=== PATIENT | male | born 1985 | race Caucasian/White ===

== ENCOUNTER 2017-07-25 23:34 | Observation (INO) | payer OTHER, SELFPAY ==
[2017-07-25 23:36] VITALS: BP 122/70; PULSE 83; RESP 20; TEMP 36.7; O2SAT 99; BMI 33.0
--- NOTE | 2017-07-25 23:48 | EKG12_ITS ---
Test Reason : CP Blood Pressure : / mmHG Vent. Rate : 076 BPM Atrial Rate : 076 BPM P-R Int : 174 ms QRS Dur : 080 ms QT Int : 386 ms P-R-T Axes : 035 056 059 degrees QTc Int : 434 ms Normal sinus rhythm Normal ECG Confirmed by DAVE OLVERA ([id number]), associate editor NANCY PLATA ([id number]) on 07/28/2017 1:16:34 PM Referred By: MARII Confirmed By:DAVE OLVERA
--- NOTE | 2017-07-25 23:48 | RAD_ITS ---
STUDY: X-RAY CHEST REASON FOR EXAM: Male, 32 years old. Chest pain and shortness of breath TECHNIQUE: Single frontal view COMPARISON: 12/01/2016 FINDINGS: The lungs are clear and expanded. There is no demonstrated pleural abnormality. Normal size heart. Normal mediastinum and kenan. Normal visualized pulmonary arteries. Normal visualized aortic arch and descending thoracic aorta. Normal visualized thoracic spine. Normal visualized ribs, clavicles, and shoulders. There is no demonstrated abnormality of the visualized soft tissue structures of the upper abdomen. RAD/Chest 1 View (Portable) IMPRESSION: Normal x-ray examination of the chest. Electronically Signed: Randy Hernández MD at 0:51 EDT , Service support ,
[2017-07-25 23:53] VITALS: O2SAT 99
[2017-07-25 23:57] VITALS: BP 123/83; PULSE 82
[2017-07-25] MEDS: Aspirin 81 MG TAB.CHEW 324 MG PO (23:57)
[2017-07-26] VITALS (15 sets, daily range): BP systolic 101–123; BP diastolic 61–74; PULSE 61–92; RESP 12–21; TEMP 36.6–36.8; O2SAT 96–99; BMI 33.0; BMI 34.9
[2017-07-26] MEDS: 0.9% Normal Saline 1,000 ML 150 ML IV ×2 (00:04→06:41)
[2017-07-26 00:07] LABS: Absolute Lymphocyte Count 3.39 X10^3/ul (0.83-4.51); Absolute Neutrophil Count 2.5 X10^3/uL (2.0-7.7); Basophil# 0.04 X10^3/uL; Basophil% 0.6 % (0-1); Eosinophil# 0.18 X10^3/uL; Eosinophils% 2.7 % (0-5); Hematocrit 43.4 % (40-54); Hemoglobin 14.3 g/dl (13.0-16.5); Lymphocyte # 3.39 X10^3/ul (4.0); Lymphocyte % 49.9 % (19-41); Mean Corp Hgb Conc 32.9 g/gl (32-36); Mean Corpuscular Hgb 29.2 pg (27.0-32.0); Mean Corpuscular Volume 88.6 fL (80-94); Mean Platelet Vol. 9.7 fl (6.2-12.0); Monocyte# 0.69 X10^3/uL; Monocyte% 10.2 % (0-10); Neutrophil # 2.48 X10^3/uL (2.7-7.7); Neutrophil % 36.5 % (47-70); POSITIVE COUNT NO; POSITIVE DIFFERENTIAL NO; POSITIVE MORPHOLOGY NO; Platelet Count 244 K/mm3 (150-450); RBC Distribution Width CV 12.8 % (11.6-14.6); RBC Distribution Width SD 40.8 fl (35.1-43.9); White Blood Count 6.8 K/mm3 (4.4-11.0)
[2017-07-26 00:21] LABS: Anion Gap 6 (5-15); BUN 9 mg/dL (7-18); BUN/Creat Ratio 10.1 RATIO (10-20); Calcium,Total 8.3 mg/dL (8.5-10.1); Chloride 109 mmol/L (98-107); Creatinine, Serum 0.89 mg/dL (0.70-1.30); EST Glomerular Filtration Rate 106 mL/min (>60); Est Glom Filt Rate - Afr Amer 128 mL/min (>60); Estimated Creatinine Clearance 112.44 ml/min; Glucose 108 mg/dL (74-106); Potassium 3.7 mmol/L (3.5-5.1); Sodium Level 141 mmol/L (136-145)
[2017-07-26 00:39] LABS: D-Dimer Quantitative (DVT/PE) < 0.27 FEU/ug/m (0.27-0.49)
--- NOTE | 2017-07-26 00:56 | ED.VISSUMM ---
- ER Visit Summary Date of Service: 07/26/17 Chief Complaint: [Pain chest] History of Present Illness: The patient is a 32 M [presents to the emergency department with complaint of chest pain that started about 5 days ago. Patient describes it as pressure and retrosternal. Patient rates his pain as 7 out of 10. No radiation of the pain. Patient does feel short of breath with it. He denies any nausea or vomiting. He denies any diaphoresis. Patient initially thought maybe it was related to anxiety or panic attack but it did not resolve. Patient states that he has a history of high cholesterol and significant family history of heart disease. Patient's father had his first CT at age 37. Patient denies recent travel or surgery. Patient does have a history of PTSD, traumatic brain injury, anxiety.] Physical Examination: [HEENT-PERRLA, EOMI. Cranial nerves II through XII grossly intact. TMs clear. Mucous membranes moist. No adenopathy. Cardiovascular-regular rate and rhythm without murmur or ectopy Lungs-clear to auscultation, chest wall stable without crepitus or subcu emphysema Abdomen-normoactive bowel sounds, soft, nontender, no rebound or rigidity, no peritoneal signs. Extremities-intact ?4, normal range of motion, normal pulses, atraumatic] Test Results: [EKG obtained showed sinus rhythm with a ventricular rate of 76 bpm with no acute ST segment changes. CBC with differential was normal. Chemistries were normal. Troponin is less than 0.02. D-dimer was normal less than 0.27. Chest x-ray was normal.] Emergency Department Course and Treatment: Patient received aspirin in the emergency department. Patient also received 1 sublingual nitroglycerin every 5 minutes ?3 which resolved his pain. Patient had an inch of Nitropaste placed to the anterior chest wall. [] Treatment Plan: [Admit for further workup and evaluation.] Disposition: [Admit] Impression: [Chest pain-rule out acute coronary syndrome] This note was generated with [employer] dictation software. It may contain incorrect words, spelling, and punctuation that were not noted in review of the chart prior to signing ED Disposition - Plan for ED Patient: Chief Complaint: Chest Pain Referrals: [facility] [Primary Care Provider] -
[2017-07-26] MEDS: Nitroglycerin Oint 1 INCH PACKET TRANSDERM. (01:33)
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
[2017-07-26 02:37] LABS: Magnesium 2.3 mg/dL (1.6-2.6)
[2017-07-26 04:47] LABS: Hematocrit 41.8 % (40-54); Hemoglobin 13.6 g/dl (13.0-16.5); Mean Corp Hgb Conc 32.5 g/gl (32-36); Mean Corpuscular Volume 89.1 fL (80-94); Mean Platelet Vol. 9.6 fl (6.2-12.0); Platelet Count 232 K/mm3 (150-450); RBC Distribution Width CV 12.8 % (11.6-14.6); Red Blood Count 4.69 M/mm3 (4.6-6.2); White Blood Count 5.9 K/mm3 (4.4-11.0)
[2017-07-26 04:50] LABS: Scan Indicated on CBC? Y/N NO
[2017-07-26 04:59] LABS: Prothrombin Time (Protime)PT. 13.5 SECONDS (11.7-14.9)
[2017-07-26 05:00] LABS: Partial Thromboplast Time 31.4 Seconds (24.1-36.2)
[2017-07-26 05:17] LABS: Anion Gap 7 (5-15); BUN 8 mg/dL (7-18); BUN/Creat Ratio 8.7 RATIO (10-20); Calcium,Total 7.9 mg/dL (8.5-10.1); Chloride 110 mmol/L (98-107); Cholesterol 184 mg/dL (200); Creatinine, Serum 0.92 mg/dL (0.70-1.30); EST Glomerular Filtration Rate 102 mL/min (>60); Est Glom Filt Rate - Afr Amer 124 mL/min (>60); Estimated Creatinine Clearance 108.77 ml/min; Glucose 101 mg/dL (74-106); High Density Lipoprotein 38 mg/dL; Potassium 3.7 mmol/L (3.5-5.1); Sodium Level 141 mmol/L (136-145); Triglycerides 124 mg/dL; Very Low Density Lipoprotein 25 mg/dL (5-40)
--- NOTE | 2017-07-26 05:55 | EKG12_ITS ---
Test Reason : AM EKG Blood Pressure : / mmHG Vent. Rate : 084 BPM Atrial Rate : 084 BPM P-R Int : 196 ms QRS Dur : 080 ms QT Int : 386 ms P-R-T Axes : 055 093 076 degrees QTc Int : 456 ms Normal sinus rhythm with sinus arrhythmia Nonspecific T wave abnormality Abnormal ECG When compared with ECG of 25-JUL-2017 23:37, MANUAL COMPARISON REQUIRED, DATA IS UNCONFIRMED Confirmed by DAVE OLVERA ([id number]), medical transcription editor NANCY PLATA ([id number]) on 07/31/2017 3:03:02 PM Referred By: DR JAIMES Confirmed By:DAVE OLVERA
--- NOTE | 2017-07-26 05:55 | STEWCON_ITS ---
Reason For Study: CHEST PAIN Stress Results Protocol: Stress Echocardiogram Maximum Predicted HR: 189 bpm Target HR: 161 bpm% Maximum Pr edicted HR: 89 % Heart Stage Duration Rate BPCom ment (mm:ss) (bpm) BASELINE 76 110/ 74DEFINITY 0.5 ML USED DURING SE RAFA PROTOCOL- STAGE 1 3:00 14 6 128/60 RAFA PROTOCOL- STAGE 2 3:00 16 9 134/68SOB, BACK AND HIP PAIN 6 MIN AFTER SE COMPLETE- CP 2 ON SCALE 1-10 OCCURRED. RECOVERY 72 124/ 60RELIEVED AFTER 5 MIN WITH 02 2L/NC Stress Duration: 6:00 mm:ss Maximum Stress HR: 169 bpm Baseline Echocardiogram Findings The estimated ejection fraction is 60 %. Stress Echo Wall motion Data Resting WMIntermediate WMStress WM Resting Wall Motion Wall Motion Stress No regional wall motion No regional wall motion abnormalities noted. abnormalities noted. EKG Data Normal intervals are noted. The patient exercised according to the regular Rafa protocol for a total duration of 6:02. The maximum heart rate attained was 169 beats per minute. This was 89% of maximum predicted heart rate. The patient exercised into stage 3. of the Rafa protocol. During stress, there were no ST or T wave changes noted to suggest ischemia. Interpretation Summary The study was technically difficult. Contrast injection was performed. Normal adequate treadmill echocardiogram. Negative for ischemia by EKG and echocardiographic criteria. No anginal symptoms noted. Rare PACs noted. Appropriate blood pressure response to exercise. Below average exercise capacity for age but may be complicated by back and hip pain at peak exercise. Final LVEF of 75%. Decreased sensitivity due to poor echo windows requiring Definity enhancing agent. Test terminated due to the attainment of target heart rate. Ordering Physician: Juliana Monreal Referring Physician: [facility] Performed By: Kaylan Smith, MICHELLE, RVT
[2017-07-26] MEDS: Aspirin E.C. 81 MG Tablet PO (06:11)
--- NOTE | 2017-07-26 11:25 | CASEMGMT ---
SW received a referral for mental health. ZACH met with patient, introduced self and role at [facility]. [facility]. He said at the end of this month he will be going into residential treatment for his mental health. He has a service dog for his seizure disorder. He thanked ZACH for stopping by. Elizabeth TORRES MSW
--- NOTE | 2017-07-26 12:26 | PCM.DC ---
- Discharge Diagnoses Current Active Problems: Current Active and Chronic Problems TBI (traumatic brain injury) (Chronic) PTSD (post-traumatic stress disorder) (Acute) Anxiety and depression (Acute) HLD (hyperlipidemia) (Acute) Obesity (Acute) Chest pain (Acute) You will use the following diet at home:: Other - Low fat/cholesterol. Discharge Activity: Return to Normal Activity Call your doctor if you observe: Shortness of breath, Dizziness, Fainting spells, Chest pain, Increased palpitations (irregular heartbeat) Allergies/Adverse Reactions: Allergies pineapple Allergy (Verified 07/26/17 02:08) Anaphylaxis Medications to take at Discharge Pravastatin [Pravachol] 20 mg PO QHS 11/13/16 Topiramate [Topamax] 50 mg PO DAILY 11/13/16 Venlafaxine HCl [Effexor Xr] 225 mg PO DAILY 11/13/16 Primary Care Physician: [facility] [Primary Care Provider] - Please follow up with your Primary Care Physician in: 1-2 Weeks Proposed Discharge Date: 07/26/17
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
== END 2017-07-26 12:27 | disposition home or self-care (01) ==
LOC: ED 07-26 00:28 → PCU 07-26 01:46
PROVIDERS: Admitting Provider Family Medicine; Emergency Provider Emergency Medicine; Visit Provider Internal Medicine
DX: R07.89 Other chest pain (principal); R06.02 Shortness of breath; Z82.49 Family history of ischemic heart disease and other diseases of the circulatory system; Z79.899 Other long term (current) drug therapy; F43.11 Post-traumatic stress disorder, acute; F41.9 Anxiety disorder, unspecified; Z87.820 Personal history of traumatic brain injury; F32.9 Major depressive disorder, single episode, unspecified; E78.5 Hyperlipidemia, unspecified; E66.9 Obesity, unspecified; Z68.35 Body mass index [BMI] 35.0-35.9, adult; Z71.3 Dietary counseling and surveillance
CPT/HCPCS: 36415; 71045; 80048; 80061; 83735; 84484; 85025; 85027; 85379; 85610; 85730; 93005; 93017; 93350; 96360; 96361; 97802; 99218; 99283; J7030; Q9957; A4216; C8928; G0378